=== PATIENT | male | born 1965 | race Caucasian/White ===

== ENCOUNTER 2022-12-25 19:10 | Observation (INO) ==
[2022-12-25] MEDS ORDERED: ONDANSETRON INJ 2 MG/ML 2 ML VIAL IV STA (19:24)
[2022-12-25] MEDS ORDERED: SODIUM CHLORIDE 0.9% 1,000 ML IV STA (19:24)
--- NOTE | 2022-12-25 19:24 | ED Triage Note ---
Date of Service December 25, 2022 History of Present Illness This patient was briefly evaluated while in triage. An abbreviated physical exam was performed. This patient is a 57-year-old Male who presents to the ED for evaluation of abdominal pain. Pt. presents from [facility]. 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 Also reports history of asplenia. Dry heaving after taking a few sips of Gatorade. Pain started 3-4 days ago, seemed to improve today, but worsened today while at the tailgate. Pt. had sinus infection, was on antibiotics without probiotics. Thought that was contributing. Pt. states last night, stopped passing gas. Today, no bowel movement. States "nothing moves down, nothing moves up." LBM was yesterday morning. Physical Exam VITALS: Vitals are noted on the nurse's note and reviewed by myself. GENERAL: This is a 57 year old male, in no acute distress, nondiaphoretic, well- developed well-nourished. SKIN: No obvious rashes, edema, erythema HEAD: Normocephalic atraumatic. EYES: Conjunctivae without injection, sclerae without icterus. NECK: No JVD. LUNGS: No retractions or accessory muscle use. MUSCULOSKELETAL: Normal gait. NEURO: Patient was alert and oriented to person place and time. No focal neurological deficits. Initial orders for labs and / or imaging were placed and patient was placed in the waiting area until a bed is available. Please see further documentation for the full ED course.
[2022-12-25 21:08] LABS: Anion Gap 4 (3-11); Blood Urea Nitrogen 12 mg/dl (6-23); Carbon Dioxide 29 mmol/L (21-32); Chloride 105 mmol/L (98-107); Est GFR (African American) 127.7 ml/min; Est GFR (Non-African American) 110.2 ml/min; Potassium 4.1 mmol/L (3.5-5.1); Sodium 138 mmol/L (136-145)
[2022-12-25 21:09] LABS: Alanine Aminotransferase 17 U/L (7-52); Albumin Globulin Ratio 1.9 (0.9-2); Albumin Level 4.1 gm/dl (3.4-5.0); Alkaline Phosphatase 88 U/L (34-104); Aspartate Aminotransferase 15 U/L (13-39); Bilirubin,Total 0.9 mg/dl (0.2-1.0); Calcium 9.2 mg/dl (8.6-10.3); Globulin 2.2 gm/dl (2.5-4.0); Glucose 112 mg/dl (70-99(Fasting)); Lipase 15 U/L (11-82); Total Protein 6.3 gm/dl (6.0-8.3)
[2022-12-25 21:16] LABS: Troponin I High Sensitivity 3.7 pg/ml (0-20)
[2022-12-25 21:22] LABS: Prothrombin Time 11.2 Seconds (9.0-12.0)
[2022-12-25 21:44] LABS: Basophils # (auto) 0.04 K/uL (0.00-0.20); Basophils % (auto) 0.3 %; Eosinophils # (auto) 0.03 K/uL (0.00-0.50); Eosinophils % (auto) 0.3 %; Hematocrit (blood only) 42.4 % (42.0-52.0); Hemoglobin 14.4 g/dl (14.0-18.0); Immature Granulocytes # (auto) 0.04 K/uL (0.01-0.20); Immature Granulocytes % (auto) 0.3 %; Lymphocytes # (auto) 1.16 K/uL (1.20-3.40); Lymphocytes % (auto) 9.8 %; Mean Corpuscular Hemoglobin 31.4 pg (25.0-34.0); Mean Corpuscular Volume 92.4 fL (80.0-100.0); Mean Platelet Volume 10.1 fL (9.4-12.4); Monocytes # (auto) 0.53 K/uL (0.11-0.59); Monocytes % (auto) 4.5 %; Neutrophils # (auto) 10.02 K/uL (1.40-6.50); Neutrophils % (auto) 84.8 %; Platelet Count 360 K/uL (130-400); RDW Coefficient of Variation 13.4 % (11.5-14.5); RDW Standard Deviation 45.1 fL (36.4-46.3); Red Blood Count 4.59 M/uL (4.70-6.10); White Blood Count 11.82 K/ul (4.8-10.8)
--- NOTE | 2022-12-25 21:53 | Emergency Department Note ---
ED Provider Note History of Present Illness Chief Complaint: Abdominal Pain Stated Complaint: ABDOMINAL PAIN Time Seen by Provider: 12/25/22 21:26 Source: patient Mode of arrival: EMS Limitations: no limitations This patient is a 57-year-old male who presents to the emergency department via EMS for evaluation of abdominal pain. Patient reports that he has had some abdominal pain for the past 5 days. He had been on some antibiotics and thought maybe it was due to that. He was feeling somewhat better last night and decided to come to the football game today. He states that he was unable to eat anything all day but was very thirsty so he was trying to drink some Gatorade at the game. He then began vomiting and his pain became more severe. Pain has calmed down now and is a 4/10. He was given some medication by EMS and is no longer vomiting. He reports that his stomach was removed in 2020 during a hospitalization for COVID-19 pneumonia. 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 Home Medications Medication Instructions Recorded Confirmed Type calcium citrate 315 mg-vitamin D3 1 tab PO BID 12/26/22 12/26/22 History 5 mcg (200 unit) tablet (Calcium Citrate + D) cholecalciferol (vitamin D3) 25 25 mcg PO DAILY 12/26/22 12/26/22 History mcg (1,000 unit) tablet (Vitamin D3) cyanocobalamin (vitamin B-12) 1,000 mcg IM .[id number] 12/26/22 12/26/22 History 1,000 mcg/mL injection solution epinephrine 0.3 mg/0.3 mL 0.3 mg IM Q4H PRN Allergic Reaction 12/26/22 12/26/22 History injection, auto-injector (EpiPen) ferrous sulfate 325 mg (65 mg 325 mg PO DAILY 12/26/22 12/26/22 History iron) tablet (iron) fluticasone propionate 50 2 spray intranasal DAILY 12/26/22 12/26/22 History mcg/actuation nasal spray,suspension loratadine 10 mg tablet 10 mg PO DAILY 12/26/22 12/26/22 History meclizine 25 mg tablet 25 mg PO QID PRN dizzy 12/26/22 12/26/22 History mometasone-formoterol HFA 200 2 puff inhalation BID 12/26/22 12/26/22 History mcg-5 mcg/actuation aerosol inhaler (Dulera) [id number]-[id number] 45 mg-folic 1 cap PO BID 12/26/22 12/26/22 History acid 800 mcg-vit K 120 mcg capsule (Bariatric Multivitamins) potassium citrate 10 mEq (1,080 10 meq PO TID 12/26/22 12/26/22 History mg) tablet,extended release tiotropium bromide 1.25 2 puff inhalation QAM 12/26/22 12/26/22 History mcg/actuation mist for inhalation (Spiriva Respimat) vitamin A 2,400 mcg capsule 2,400 mcg PO DAILY 12/26/22 12/26/22 History Allergies Allergy/AdvReac Type Severity Reaction Status Date / Time bee venom protein (honey bee) Allergy Severe Anaphylaxis Verified 12/26/22 01:17 Sulfa (Sulfonamide AdvReac Rash Verified 12/26/22 01:17 Antibiotics) Past Med/Surg History Surgical History History of gastric surgery S/P splenectomy Social History Smoking Status: Never smoker Second Hand Exposure: No; Do You Dip or Chew Tobacco: No; Hx Alcohol Use: No Hx Substance Use: No Preferred Language: Argentine Communication Ability: Effective [employer] Floor Person Required: No Beliefs That Will Affect Care: None Current Living Situation: Spouse Other Information That Helps Us Care for You: No Feels Safe at Home: Yes Safety Concerns: Feels Safe At This Time Assistive Devices: Glasses Physical Exam Vital Signs Vital Signs - 24 hr 12/25/22 19:22 12/25/22 22:27 12/25/22 22:28 Temperature 36.8 C Temperature Source Temporal Artery Scan Pulse Rate 71 Pulse Rate [Finger] 59 L Respiratory Rate 18 14 Respiratory Effort / Characteristics Non-Labored Spontaneous Respiratory Depth Normal Normal Respiratory Pattern Regular Blood Pressure 127/72 Blood Pressure [Left Arm] 124/72 Blood Pressure Mean 90 Blood Pressure Mean [Left Arm] 89 Pulse Oximetry 96 99 99 Oxygen Delivery Method Room Air Room Air Room Air Sepsis Recent Fever Within 48 Hours No Sepsis New/Unexplained Change in Mental Status No Sepsis Action Taken by Nursing No Action Required 12/25/22 19:24 Temperature 36.9 C Temperature Source Oral Pulse Rate Pulse Rate [Finger] Respiratory Rate Respiratory Effort / Characteristics Respiratory Depth Respiratory Pattern Blood Pressure Blood Pressure [Left Arm] Blood Pressure Mean Blood Pressure Mean [Left Arm] Pulse Oximetry Oxygen Delivery Method Sepsis Recent Fever Within 48 Hours Sepsis New/Unexplained Change in Mental Status Sepsis Action Taken by Nursing VITALS: Vitals are noted on the nurse's note and reviewed by myself. GENERAL: This is a 57-year-old male, in no acute distress, well-developed well- nourished. SKIN: The skin was without rashes. EARS: External auditory canals clear, tympanic membranes pearly hwang without er ythema or effusion bilaterally. EYES: Pupils equal round and reactive to light and accommodation. MOUTH: Mucous membranes moist. Tonsils are not enlarged. Pharynx without erythema or exudate. NECK: Supple without nuchal rigidity. HEART: Regular rate and rhythm without murmurs gallops or rubs. LUNGS: Clear to auscultation bilaterally without wheezes, rales or rhonchi. ABDOMEN: Large midline surgical scar noted. Positive bowel sounds x 4. Abdomen is soft, tender throughout. No guarding or rebound tenderness. NEURO: Patient was alert and oriented to person place and time. Course Administered Medications Fluticasone Propionate (Fluticasone Propionate Na Spr 16 Gm Btl) 2 sprays NA DAILY EZRA Stop: 01/25/23 08:59 Last Admin: 12/26/22 10:10 Dose: 2 sprays Documented By: MARCOS Fluticasone/Vilanterol (Fluticasone/Vilanterol 200/25mcg 14 Puffs/Inhaler) 1 puffs INH DAILY EZRA Stop: 01/25/23 08:59 Last Admin: 12/26/22 08:11 Dose: 1 puffs Documented By: MARCOS Dextrose/Sodium Chloride (D5w And 1/2nss) 1,000 mls @ 125 mls/hr IV .Q8H EZRA Stop: 01/25/23 01:55 Last Admin: 12/26/22 09:29 Dose: 125 mls/hr Documented By: Infusion: 12/26/22 09:29 Dose: 0 mls/hr Documented By: Admin: 12/26/22 02:01 Dose: 125 mls/hr Documented By: JOSE DE JESUS Umeclidinium [place] (Umeclidinium [place] 62.5mcg/Blister 7 Puffs/Inhaler) 1 puffs INH QAM EZRA Stop: 01/25/23 08:59 Last Admin: 12/26/22 08:11 Dose: 1 puffs Documented By: MRE Discontinued Medications Sodium Chloride (Nss 1000ml) 1,000 mls @ 999 mls/hr IV .Q1H1M STA Stop: 12/25/22 20:24 Last Infusion: 12/25/22 22:19 Dose: 0 mls/hr Documented By: Admin: 12/25/22 20:28 Dose: 999 mls/hr Documented By: TBS Potassium Chloride (K Abdi / Wtr) 10 meq in 100 mls @ 100 mls/hr IV Q1H EZRA Stop: 12/26/22 12:59 Last Admin: 12/26/22 12:10 Dose: Not Given Documented By: Admin: 12/26/22 12:06 Dose: Not Given Documented By: Infusion: 12/26/22 12:05 Dose: 0 mls/hr Documented By: Admin: 12/26/22 10:55 Dose: 100 mls/hr Documented By: Infusion: 12/26/22 10:45 Dose: 0 mls/hr Documented By: Admin: 12/26/22 09:29 Dose: 100 mls/hr Documented By: MARCOS Ioversol (Optiray 320 100ml) 90 ml IV ONCE ONE Stop: 12/25/22 22:19 Last Admin: 12/25/22 22:19 Dose: 90 ml Documented By: MORENITA Ondansetron HCl (Ondansetron Inj 2 Mg/Ml 2 Ml Vial) 4 mg IV NOW STA Stop: 12/25/22 19:25 Last Admin: 12/25/22 20:28 Dose: 4 mg Documented By: JUSTINE Medical Decision Making Differential Diagnosis Appendicitis, testicular torsion, infections, diverticulitis, UTI, obstruction, mesenteric ischemia, aortic pathology, inflammatory bowel disease, renal colic, PUD, pancreatitis, biliary pathology, hernia, volvulus, constipation, as well as other pathologies. Home Medications was personally reviewed by me Laboratory Data Attestation: I reviewed the patient's lab results. 12/25/22 20:20 12/25/22 20:20 Lab Results 12/25/22 12/25/22 12/25/22 Range/Units 20:20 20:20 20:20 WBC 11.82 H (4.8-10.8) K/ul RBC 4.59 L (4.70-6.10) M/uL Hgb 14.4 (14.0-18.0) g/dl Hct 42.4 (42.0-52.0) % MCV 92.4 (80.0-100.0) fL MCH 31.4 (25.0-34.0) pg MCHC 34.0 (32.0-36.0) g/dL RDW Std Deviation 45.1 (36.4-46.3) fL RDW Coeff of Tommie 13.4 (11.5-14.5) % Plt Count 360 (130-400) K/uL MPV 10.1 (9.4-12.4) fL Immature Gran % (Auto) 0.3 % Neut % (Auto) 84.8 % Lymph % (Auto) 9.8 % Price % (Auto) 4.5 % Eos % (Auto) 0.3 % Baso % (Auto) 0.3 % Neut # (Auto) 10.02 H (1.40-6.50) K/uL Lymph # (Auto) 1.16 L (1.20-3.40) K/uL Price # (Auto) 0.53 (0.11-0.59) K/uL Eos # (Auto) 0.03 (0.00-0.50) K/uL Baso # (Auto) 0.04 (0.00-0.20) K/uL Immature Gran # (Auto) 0.04 (0.01-0.20) K/uL PT 11.2 (9.0-12.0) Seconds INR 1.0 (0.9-1.1) Sodium 138 (136-145) mmol/L Potassium 4.1 (3.5-5.1) mmol/L Chloride 105 (98-107) mmol/L Carbon Dioxide 29 (21-32) mmol/L Anion Gap 4 (3-11) BUN 12 (6-23) mg/dl Creatinine 0.63 (0.6-1.4) mg/dl Est Cr Clr Drug Dosing Not Reportable Est GFR ( Amer) 127.7 ml/min Est GFR (Non-Af Amer) 110.2 ml/min BUN/Creatinine Ratio 19.0 (10-20) Glucose 112 H (70-99(Fasting)) mg/dl Lactate (0.4-2.0) mmol/L Calcium 9.2 (8.6-10.3) mg/dl Total Bilirubin 0.9 (0.2-1.0) mg/dl AST 15 (13-39) U/L ALT 17 (7-52) U/L Alkaline Phosphatase 88 (34-104) U/L Troponin I High Sens 3.7 (0-20) pg/ml Total Protein 6.3 (6.0-8.3) gm/dl Albumin 4.1 (3.4-5.0) gm/dl Globulin 2.2 L (2.5-4.0) gm/dl Albumin/Globulin Ratio 1.9 (0.9-2) Lipase 15 (11-82) U/L Urine Color Urine Appearance (Clear) Urine pH (4.5-7.5) Ur Specific [place] (1.000-1.030) Urine Protein (Negative) Urine Glucose (UA) (Negative) Urine Ketones (Negative) Urine Blood (Negative) Urine Nitrite (Negative) Urine Bilirubin (Negative) Urine Urobilinogen (Negative) Ur Leukocyte Esterase (Negative) Urine WBC (Auto) (0-5) /hpf Urine RBC (Auto) (0-4) /hpf U Hyaline Cast (Auto) (0-5) /lpf U Epithel Cells (Auto) (0-5) /lpf Urine Bacteria (Auto) (Negative) 12/25/22 12/25/22 Range/Units 20:20 21:04 WBC (4.8-10.8) K/ul RBC (4.70-6.10) M/uL Hgb (14.0-18.0) g/dl Hct (42.0-52.0) % MCV (80.0-100.0) fL MCH (25.0-34.0) pg MCHC (32.0-36.0) g/dL RDW Std Deviation (36.4-46.3) fL RDW Coeff of Tommie (11.5-14.5) % Plt Count (130-400) K/uL MPV (9.4-12.4) fL Immature Gran % (Auto) % Neut % (Auto) % Lymph % (Auto) % Price % (Auto) % Eos % (Auto) % Baso % (Auto) % Neut # (Auto) (1.40-6.50) K/uL Lymph # (Auto) (1.20-3.40) K/uL Price # (Auto) (0.11-0.59) K/uL Eos # (Auto) (0.00-0.50) K/uL Baso # (Auto) (0.00-0.20) K/uL Immature Gran # (Auto) (0.01-0.20) K/uL PT (9.0-12.0) Seconds INR (0.9-1.1) Sodium (136-145) mmol/L Potassium (3.5-5.1) mmol/L Chloride (98-107) mmol/L Carbon Dioxide (21-32) mmol/L Anion Gap (3-11) BUN (6-23) mg/dl Creatinine (0.6-1.4) mg/dl Est Cr Clr Drug Dosing Est GFR ( Amer) ml/min Est GFR (Non-Af Amer) ml/min BUN/Creatinine Ratio (10-20) Glucose (70-99(Fasting)) mg/dl Lactate 0.8 (0.4-2.0) mmol/L Calcium (8.6-10.3) mg/dl Total Bilirubin (0.2-1.0) mg/dl AST (13-39) U/L ALT (7-52) U/L Alkaline Phosphatase (34-104) U/L Troponin I High Sens (0-20) pg/ml Total Protein (6.0-8.3) gm/dl Albumin (3.4-5.0) gm/dl Globulin (2.5-4.0) gm/dl Albumin/Globulin Ratio (0.9-2) Lipase (11-82) U/L Urine Color Dark Yellow Urine Appearance Clear (Clear) Urine pH 6.0 (4.5-7.5) Ur Specific [place] 1.030 (1.000-1.030) Urine Protein 1+ H (Negative) Urine Glucose (UA) Negative (Negative) Urine Ketones 4+ H (Negative) Urine Blood Negative (Negative) Urine Nitrite Negative (Negative) Urine Bilirubin Negative (Negative) Urine Urobilinogen Negative (Negative) Ur Leukocyte Esterase Negative (Negative) Urine WBC (Auto) 1-5 (0-5) /hpf Urine RBC (Auto) 10-30 H (0-4) /hpf U Hyaline Cast (Auto) 10-30 H (0-5) /lpf U Epithel Cells (Auto) 10-20 H (0-5) /lpf Urine Bacteria (Auto) Negative (Negative) Imaging Data Attestation: I personally reviewed and interpreted this imaging study as follows: Radiologist's Impression: Abdomen/Pelvis CT 12/25/22 19:25 Exam(s): CT ABDOMEN + PELVIS With Contrast IV Amt: 90 ml optiray 320 EXAM: CT Abdomen and Pelvis With Intravenous Contrast CLINICAL HISTORY: Generalized abdominal pain. TECHNIQUE: Axial computed tomography images of the abdomen and pelvis with intravenous contrast. CTDI is 15.78 mGy and DLP is 769.44 mGy-cm. Automated exposure control was utilized for the study. A dose lowering technique was utilized adhering to the principles of ALARA. CONTRAST: Patient received 90 ml optiray 320 of IV contrast COMPARISON: No relevant prior studies available. FINDINGS: Lung bases: Unremarkable. No mass. No consolidation. ABDOMEN: Liver: Unremarkable. No mass. Gallbladder and bile ducts: Unremarkable. No calcified stones. No ductal dilation. Pancreas: Unremarkable. No mass. No ductal dilation. Spleen: The spleen demonstrates irregular lobular contours. In addition, there is similar soft tissue scattered nodular lesions throughout the left upper quadrant. Adrenals: Unremarkable. No mass. Kidneys and ureters: The kidneys demonstrate normal enhancement. No obstructive nephrolithiasis. No solid mass. Multiple cortical cysts noted without solid components. The largest inferomedial on the right measures 14 mm. Stomach and bowel: Postsurgical changes consistent with distal gastrectomy. There is also surgical anastomotic small bowel loops in the anterior midline abdomen. In addition to the anastomotic small bowel loops, there is mild dilation of several small bowel loops in the anterior pelvis, measuring up to 4 cm. No obvious focal high-grade transition point identified. However, there is mesenteric fat stranding and edema noted. Mild stool burden in the colon. PELVIS: Appendix: The appendix is not clearly delineated. No secondary findings to suggest acute appendicitis. Bladder: Unremarkable. No mass. Reproductive: Unremarkable as visualized. ABDOMEN and PELVIS: Intraperitoneal space: Mild free fluid in the pelvis. No loculation. No free air. Bones/joints: No acute fracture. No dislocation. Soft tissues: Unremarkable. Vasculature: Unremarkable. No abdominal aortic aneurysm. Lymph nodes: Unremarkable. No enlarged lymph nodes. IMPRESSION: 1. Postsurgical changes consistent with distal gastrectomy. There is also surgical anastomotic small bowel loops in the anterior midline abdomen. In addition to the anastomotic small bowel loops, there is mild dilation of several small bowel loops in the anterior pelvis, measuring up to 4 cm. No obvious focal high-grade transition point identified. However, there is mesenteric fat stranding and edema noted. Findings are presumed enteritis. However, if there is clinical concern for a subtle small bowel obstruction, serial radiographic evaluation to evaluate progress of the oral contrast is recommended. No pneumatosis or pneumoperitoneum. 2. Mild free fluid in the pelvis. No loculation. This is presumed reactive from the small bowel process. 3. The spleen demonstrates irregular lobular contours. In addition, there is similar soft tissue scattered nodular lesions throughout the left upper quadrant. Findings suggest polysplenia or prior splenic trauma with surrounding accessory splenic tissue. However, metastatic disease is not entirely excluded. Please correlate with any prior imaging or clinical history, not reported. Electronically signed by: Wan Hensley MD 12/25/22 23:22 PM ECG Data Attestation: I personally reviewed and interpreted this ECG as follows: Indication: + abdominal pain Rate (beats per minute): 56 Rhythm: + sinus bradycardia ECG Intervals/blocks: + Normal QT-c ECG ST segments: + Normal ST segments ECG Findings: + Other (low voltage QRS) Comparison ECG Date: no prior available MDM Narrative The patient is a 57-year-old male who presents today complaining of abdominal pain and vomiting. Labs revealed a leukocytosis of 11,000. LFTs within normal limits. Kidney function is within normal limits. CT of the abdomen/pelvis was performed, reviewed by radiology and shows findings consistent with enteritis versus small bowel obstruction. Given patient's symptoms I am concerned about a possible bowel obstruction and think it is reasonable to keep him in the hospital to observe. No need for an NG tube at this time based on CT. Did discuss with surgery, who felt that the patient could be admitted to the medical service. Case was discussed with the hospitalist, who agreed to evaluate the patient for further care. Impression Small bowel obstruction, Abdominal pain Discharge Plan Visit Data Chief Complaint: Abdominal Pain Stated Complaint: ABDOMINAL PAIN ED Provider: Steve Moore ED Midlevel Provider: Migdalia Duarte Discharge Problem: Small bowel obstruction, Abdominal pain Patient Disposition: Admitted As Inpatient Discharge Instructions Interventions: ED Discharge Assessment Last Done: 12/26/22 01:55 Abdominal pain Qualifiers: Abdominal location: unspecified location Qualified Code(s): R10.9 - Unspecified abdominal pain
[2022-12-25] MEDS ORDERED: OPTIRAY 320 100ml IV ONE (22:18)
[2022-12-25 22:34] LABS: Appearance Urine Clear (Clear); Bacteria Urine Automated Negative (Negative); Bilirubin Urine Negative (Negative); Blood Urine Negative (Negative); Color Urine Dark Yellow; Glucose Urine UA Negative (Negative); Ketones Urine 4+ (Negative); Leukocyte Esterase Urine Negative (Negative); Nitrite Urine Negative (Negative); Protein Urine 1+ (Negative); Urobilinogen Urine Negative (Negative)
--- NOTE | 2022-12-25 23:23 | CT Scan Report ---
Exam(s): CT ABDOMEN + PELVIS With Contrast IV Amt: 90 ml optiray 320 EXAM: CT Abdomen and Pelvis With Intravenous Contrast CLINICAL HISTORY: Generalized abdominal pain. TECHNIQUE: Axial computed tomography images of the abdomen and pelvis with intravenous contrast. CTDI is 15.78 mGy and DLP is 769.44 mGy-cm. Automated exposure control was utilized for the study. A dose lowering technique was utilized adhering to the principles of ALARA. CONTRAST: Patient received 90 ml optiray 320 of IV contrast COMPARISON: No relevant prior studies available. FINDINGS: Lung bases: Unremarkable. No mass. No consolidation. ABDOMEN: Liver: Unremarkable. No mass. Gallbladder and bile ducts: Unremarkable. No calcified stones. No ductal dilation. Pancreas: Unremarkable. No mass. No ductal dilation. Spleen: The spleen demonstrates irregular lobular contours. In addition, there is similar soft tissue scattered nodular lesions throughout the left upper quadrant. Adrenals: Unremarkable. No mass. Kidneys and ureters: The kidneys demonstrate normal enhancement. No obstructive nephrolithiasis. No solid mass. Multiple cortical cysts noted without solid components. The largest inferomedial on the right measures 14 mm. Stomach and bowel: Postsurgical changes consistent with distal gastrectomy. There is also surgical anastomotic small bowel loops in the anterior midline abdomen. In addition to the anastomotic small bowel loops, there is mild dilation of several small bowel loops in the anterior pelvis, measuring up to 4 cm. No obvious focal high-grade transition point identified. However, there is mesenteric fat stranding and edema noted. Mild stool burden in the colon. PELVIS: Appendix: The appendix is not clearly delineated. No secondary findings to suggest acute appendicitis. Bladder: Unremarkable. No mass. Reproductive: Unremarkable as visualized. ABDOMEN and PELVIS: Intraperitoneal space: Mild free fluid in the pelvis. No loculation. No free air. Bones/joints: No acute fracture. No dislocation. Soft tissues: Unremarkable. Vasculature: Unremarkable. No abdominal aortic aneurysm. Lymph nodes: Unremarkable. No enlarged lymph nodes. IMPRESSION: 1. Postsurgical changes consistent with distal gastrectomy. There is also surgical anastomotic small bowel loops in the anterior midline abdomen. In addition to the anastomotic small bowel loops, there is mild dilation of several small bowel loops in the anterior pelvis, measuring up to 4 cm. No obvious focal high-grade transition point identified. However, there is mesenteric fat stranding and edema noted. Findings are presumed enteritis. However, if there is clinical concern for a subtle small bowel obstruction, serial radiographic evaluation to evaluate progress of the oral contrast is recommended. No pneumatosis or pneumoperitoneum. 2. Mild free fluid in the pelvis. No loculation. This is presumed reactive from the small bowel process. 3. The spleen demonstrates irregular lobular contours. In addition, there is similar soft tissue scattered nodular lesions throughout the left upper quadrant. Findings suggest polysplenia or prior splenic trauma with surrounding accessory splenic tissue. However, metastatic disease is not entirely excluded. Please correlate with any prior imaging or clinical history, not reported. Electronically signed by: Wan Hensley MD 12/25/22 23:22 PM
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
[2022-12-26] MEDS ORDERED: ONDANSETRON INJ 2 MG/ML 2 ML VIAL IV PRN (01:56)
[2022-12-26] MEDS ORDERED: HYDROmorphone INJ 0.5 MG/0.5 ML SYR IV PRN (01:56)
[2022-12-26] MEDS ORDERED: ACETAMINOPHEN 325 MG TAB PO PRN (01:56)
[2022-12-26] MEDS: D5W AND 1/2NSS 1,000 ML IV SCH ×3 (02:01→17:59)
--- NOTE | 2022-12-26 05:08 | Surgery Progress Note ---
Date of Service December 26, 2022 Assessment & Plan (1) Small bowel obstruction: Plan: The patient has been admitted on the hospitalist service. We recommend continuing care as follows: As previously noted the patient does not have a distinct transition point rucker ggesting a small bowel obstruction on his CAT scan so he may be suffering from either an early partial small bowel obstruction or enteritis Will advance to cips and ice chips today Continue IV fluid for hydration Encourage ambulation As previously noted the patient has a history of a nearly total gastrectomy limiting the effectiveness of an NG tube. As the patient has not had any further nausea or vomiting and is beginning to pass flatus I feel we can continue to hold on this modality nonetheless. Check a.m. labs when available Admission and Anticipated Discharge Date Admission Date: December 26, 2022 Supervising Physician Co-Signing Physician Notes I have seen and examined this patient this am. I agree with the above assessment. He has no leukocytosis and has been afebrile with stable VS We will have the patient start ice chips and sips. F/U am labs. Blood on U/A yesterday, consider outpatient f/u with urology. Patient has a h/o testicular CA Subjective Patient is currently resting comfortably in bed. Patient notes that his pain is markedly improved since admission. Since my visit with him in the emergency department he has not had any further nausea or vomiting. Also since my visit in the emergency department the patient notes that he has began passing flatus. Physical Exam Gastrointestinal (Abdomen): Bowel sounds are hypoactive. Abdomen is soft, nonrigid, nondistended. There is no rebound tenderness or guarding. Patient had minimal pain with palpation. Results & Data Vital Signs (Past 12 Hours) Vital Signs Temp Pulse Pulse Resp BP BP Pulse Ox 12/26/22 02:20 36.5 C 54 L 18 130/76 97 12/25/22 19:24 36.9 C 12/25/22 22:28 99 12/25/22 22:27 59 L 14 124/72 99 12/25/22 19:22 36.8 C 71 18 127/72 96 O2 Del Method 12/26/22 02:20 Room Air 12/25/22 19:24 12/25/22 22:28 Room Air 12/25/22 22:27 Room Air 12/25/22 19:22 Room Air PG Care Time/CCT Total # of Minutes Spent Total Time Spent with Patient: Total time spent is greater than 50% in coordination of care (as documented) at patient's floor/unit and/or counseling patient: Coding Level of Care Code 65338 SUB INP/OBS CARE 05/19MIN Diagnoses Small bowel obstruction K56.609
[2022-12-26 07:16] LABS: Basophils # (auto) 0.03 K/uL (0.00-0.20); Basophils % (auto) 0.4 %; Eosinophils # (auto) 0.13 K/uL (0.00-0.50); Eosinophils % (auto) 1.5 %; Hematocrit (blood only) 38.4 % (42.0-52.0); Immature Granulocytes # (auto) 0.02 K/uL (0.01-0.20); Immature Granulocytes % (auto) 0.2 %; Lymphocytes # (auto) 2.54 K/uL (1.20-3.40); Lymphocytes % (auto) 30.3 %; Mean Corpuscular Hemoglobin 31.4 pg (25.0-34.0); Mean Corpuscular Hgb Conc 33.9 g/dL (32.0-36.0); Mean Corpuscular Volume 92.8 fL (80.0-100.0); Mean Platelet Volume 9.6 fL (9.4-12.4); Monocytes # (auto) 0.75 K/uL (0.11-0.59); Monocytes % (auto) 8.9 %; Neutrophils # (auto) 4.92 K/uL (1.40-6.50); Neutrophils % (auto) 58.7 %; Platelet Count 294 K/uL (130-400); RDW Coefficient of Variation 13.5 % (11.5-14.5); RDW Standard Deviation 45.9 fL (36.4-46.3); Red Blood Count 4.14 M/uL (4.70-6.10); White Blood Count 8.39 K/ul (4.8-10.8)
[2022-12-26 07:30] LABS: Calcium 8.1 mg/dl (8.6-10.3); Est GFR (African American) 140.4 ml/min; Est GFR (Non-African American) 121.1 ml/min; Potassium 3.3 mmol/L (3.5-5.1)
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
[2022-12-26] MEDS: FLUTICASONE/VILANTEROL 200/25MCG 14 PUFFS/INHALER INH SCH (08:11)
[2022-12-26] MEDS: UMECLIDINIUM BROMIDE 62.5MCG/BLISTER 7 PUFFS/INHALER INH SCH (08:11)
[2022-12-26] MEDS: POTASSIUM CHLORIDE / WTR 10 MEQ/100 ML PLCT IV SCH ×4 (09:29→12:10)
[2022-12-26] MEDS: FLUTICASONE PROPIONATE NA SPR 16 GM BTL SCH (10:10)
--- NOTE | 2022-12-26 11:50 | XRay Report ---
KUB CLINICAL HISTORY: Generalized abdominal pain. FINDINGS: 2 AP, portable, supine abdominal radiographs are correlated with abdominal CT dated 3. Suture material projects over the upper abdomen in the right midabdomen. There are distended and g as filled loops of small bowel in the midabdomen. Enteric contrast is seen throughout the colon. No e vidence of intraperitoneal free air is seen on these supine images. There are no abnormal abdominal c alcifications. Phleboliths are seen throughout the pelvis. The lung bases are clear as imaged. The tucker ny structures appear intact. IMPRESSION: Again seen are distended an gas-filled loops of small bowel suggestive of partial obstruc tion. There is no complete bowel obstruction as enteric contrast reaches the colon. Electronically signed by: Stefano Gonzalez M.D. 12/26/2022 11:49 AM
[2022-12-26] MEDS ORDERED: POTASSIUM CHLORIDE PWD 20 MEQ PACK PO STA (17:18)
[2022-12-27] MEDS: D5W AND 1/2NSS 1,000 ML IV SCH ×2 (01:45→09:40)
[2022-12-27 07:25] LABS: Hematocrit (blood only) 37.7 % (42.0-52.0); Hemoglobin 12.8 g/dl (14.0-18.0); Mean Corpuscular Hemoglobin 31.4 pg (25.0-34.0); Mean Corpuscular Volume 92.4 fL (80.0-100.0); Mean Platelet Volume 9.9 fL (9.4-12.4); Platelet Count 276 K/uL (130-400); RDW Coefficient of Variation 13.5 % (11.5-14.5); RDW Standard Deviation 45.6 fL (36.4-46.3); Red Blood Count 4.08 M/uL (4.70-6.10); White Blood Count 6.45 K/ul (4.8-10.8)
[2022-12-27 07:32] LABS: BUN Creatinine Ratio 10.9 (10-20); Calcium 8.3 mg/dl (8.6-10.3); Est GFR (Non-African American) 116.5 ml/min; Potassium 3.6 mmol/L (3.5-5.1)
[2022-12-27] MEDS: ENOXAPARIN INJ 40 MG/0.4 ML SYR SQ SCH (08:29)
[2022-12-27] MEDS: UMECLIDINIUM BROMIDE 62.5MCG/BLISTER 7 PUFFS/INHALER INH SCH (08:30)
[2022-12-27] MEDS: FLUTICASONE PROPIONATE NA SPR 16 GM BTL SCH (08:30)
[2022-12-27] MEDS: FLUTICASONE/VILANTEROL 200/25MCG 14 PUFFS/INHALER INH SCH (08:30)
--- NOTE | 2022-12-27 17:16 | Surgery Progress Note ---
Date of Service December 27, 2022 Assessment & Plan (1) Abdominal pain: (2) Small bowel obstruction: Plan Patient may be advanced to full liquids today. Will f/u in the am Admission and Anticipated Discharge Date Admission Date: December 26, 2022 Subjective The patient was seen this am and feels improved. He denies abdominal pain this am, N/V. Tolerating clears. Physical Exam Gastrointestinal (Abdomen): Non tender Results & Data Vital Signs (Past 12 Hours) Vital Signs Temp Pulse Resp BP Pulse Ox O2 Del Method 12/27/22 14:56 36.8 C 60 18 104/64 97 Room Air 12/27/22 07:35 36.5 C 55 L 18 109/62 98 Room Air PG Care Time/CCT Total # of Minutes Spent Total Time Spent with Patient: Total time spent is greater than 50% in coordination of care (as documented) at patient's floor/unit and/or counseling patient: Coding Level of Care Code 40519 SUB INP/OBS CARE 1/25MIN Diagnoses Abdominal pain R10.9 Abdominal location: unspecified location Small bowel obstruction K56.609 (1) Abdominal pain Abdominal location: unspecified location Qualified Code(s): R10.9 - Unspecified abdominal pain
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
--- NOTE | 2022-12-27 21:22 | Electrocardiogram Report ---
Test Reason : Blood Pressure : / mmHG Vent. Rate : 056 BPM Atrial Rate : 056 BPM P-R Int : 142 ms QRS Dur : 090 ms QT Int : 420 ms P-R-T Axes : 062 062 060 degrees QTc Int : 405 ms Sinus bradycardia Low voltage QRS Borderline ECG No previous ECGs available Confirmed by Mehdi Mendoza ([id number]) on 12/27/2022 9:22:10 PM Referred By: REFERRED SELF Confirmed By:Mehdi Mendoza
[2022-12-28 07:43] LABS: Calcium 8.3 mg/dl (8.6-10.3); Creatinine Clr Calc Pharmacy 142.2 ml/min; Est GFR (African American) 132.1 ml/min; Potassium 3.5 mmol/L (3.5-5.1)
[2022-12-28] MEDS: UMECLIDINIUM BROMIDE 62.5MCG/BLISTER 7 PUFFS/INHALER INH SCH (08:45)
[2022-12-28] MEDS: FLUTICASONE PROPIONATE NA SPR 16 GM BTL SCH (08:45)
[2022-12-28] MEDS: FLUTICASONE/VILANTEROL 200/25MCG 14 PUFFS/INHALER INH SCH (08:45)
[2022-12-28] MEDS: ENOXAPARIN INJ 40 MG/0.4 ML SYR SQ SCH (09:16)
--- NOTE | 2022-12-28 10:49 | Surgery Progress Note ---
This patient was seen and examined this morning with the surgical PA. I agree with the plan Date of Service December 28, 2022 Assessment & Plan (1) Small bowel obstruction: Plan: pt here with resolving SBO advanced to low fiber yesterday, he is doing well with this. no pain/v/n + bowel function he may be dispo'd from our standpoint. no need to f/u with us in the clinic Admission and Anticipated Discharge Date Admission Date: December 26, 2022 Subjective patient feeling well. no abdominal pain, n/v. tolerating a low fiber diet. + gas/bm Physical Exam Physical Exam: awake/alert, sitting up in chair Respiratory: normal respiratory effort Gastrointestinal (Abdomen): Percussion/Palpation: abdomen soft; abdomen nontender Results & Data Vital Signs (Past 12 Hours) Vital Signs Temp Pulse Resp BP Pulse Ox O2 Del Method 12/28/22 07:01 36.8 C 62 16 107/66 97 Room Air PG Care Time/CCT Total # of Minutes Spent Total Time Spent with Patient: Total time spent is greater than 50% in coordination of care (as documented) at patient's floor/unit and/or counseling patient: Coding Level of Care Code 83567 SUB INP/OBS CARE 1/25MIN Diagnoses Small bowel obstruction K56.609
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
== END 2022-12-28 12:45 | disposition home or self-care (01) ==
LOC: ED 19:10 → INTOOBSV 12-26 00:36 → 3N 12-26 00:36